=== PATIENT | female | born 1960 | race Caucasian/White ===

== ENCOUNTER 2023-06-05 17:24 | Emergency (ER) | payer OTHER ==
[2023-06-05 17:34] VITALS: BP 153/89; PULSE 88; RESP 18; TEMP 98.3; BMI 36.0
[2023-06-05] MEDS ORDERED: KETOROLAC TROMETHAMINE 30 MG/1 ML VIAL ONE (20:29)
[2023-06-05] MEDS: KETOROLAC TROMETHAMINE 30 MG/1 ML VIAL IM ONE (20:34)
== END 2023-06-05 20:46 | disposition home or self-care (01) ==
LOC: JER 17:24
PROC: 3E0233Z Introduction of Anti-inflammatory into Muscle, Percutaneous Approach (ICD-10-PCS; principal; 2023-06-05)
DX: R20.2 Paresthesia of skin (principal)
CPT/HCPCS: 70450-TC; 96372; 99284-25